=== PATIENT | male | born 1990 | race Caucasian/White ===

== ENCOUNTER 2020-11-05 14:15 | Emergency (ER) | payer OTHER ==
[2020-11-05 14:29] VITALS: BP 149/80; PULSE 69; TEMP 98.3; BMI 31.4
== END 2020-11-05 15:56 | disposition home or self-care (01) ==
LOC: JER 14:15
DX: K40.90 Unilateral inguinal hernia, without obstruction or gangrene, not specified as recurrent (principal); T81.31XA Disruption of external operation (surgical) wound, not elsewhere classified, initial encounter
CPT/HCPCS: 99281-25